=== PATIENT | male | born 1965 | race Caucasian/White ===

== ENCOUNTER 2025-03-15 10:30 | Day surgery (SDC) | payer OTHER ==
[~2025-03-15] VITALS: Ht 188 cm; Wt 139.0 kg
[~2025-03-15 10:30] MED LIST: ALLOPURINOL100 MG PO; CIALIS5 MG PO; COZAAR25 MG PO; HYDROCODON-ACE1 EAC8 PO; IBLOOD GLUCOSE TEST STRIP 1 EA TEST VI PRN; LACTATED RINGER'S 1,000 ML IV SCH; LIDOCAINE HCL 1% 5 ML SDV INJ ONE; ROSUVASTATIN CA20 MG PO
[2025-03-15 10:46] VITALS: BP 146/86
[2025-03-15] MEDS ORDERED: LIDOCAINE HCL 2% 5 ML SDV ONE (11:04)
--- NOTE | 2025-03-15 12:56 | NUR ---
03/15/25 1256 Nicole Jenkins 1233-PT ARRIVES TO PACU, VIA STRETCHER, PT RESTING ON LT SIDE, NOT RESPONISIVE TO TACTILE OR VERBAL STIMULI, RR EVEN AND UNLABORED, VSS ON 6L VIA MASK. 1248-PT AWAKENS ON OWN, TITRATED TO RA, VS REMAIN STABLE. PT DENIES PAIN OR NAUSEA. PT EDUCATED AND ENCOURAGED TO PASS GAS.
[2025-03-15 13:07] VITALS: BP 130/87
== END 2025-03-15 13:20 | disposition home or self-care (01) ==
LOC: OPS 10:30 → DS 10:30 → OPS 11:20 → DS 12:15 → OPS 12:50
PROVIDERS: ATTEND Surgery
PROC: 0DJD8ZZ Inspection of Lower Intestinal Tract, Via Natural or Artificial Opening Endoscopic (ICD-10-PCS; principal; 2025-03-15 11:20)
DX: Z12.11 Encounter for screening for malignant neoplasm of colon (principal); K57.30 Diverticulosis of large intestine without perforation or abscess without bleeding; I10 Essential (primary) hypertension; F31.9 Bipolar disorder, unspecified; E78.2 Mixed hyperlipidemia; F43.10 Post-traumatic stress disorder, unspecified; E66.9 Obesity, unspecified; Z88.0 Allergy status to penicillin; Z79.899 Other long term (current) drug therapy; Z86.0102 Personal history of hyperplastic colon polyps
CPT/HCPCS: 00811; J2003; J2704; J7121